=== PATIENT | female | born 1985 | race Two or more races ===

== ENCOUNTER → 2024-04-12 09:27 | Outpatient (REF) | payer BC, SELFPAY ==
[2024-04-12 10:54] LABS: % Basophils 0.7 % (0-2); % Eosinophils 3.4 % (0-6); % Immature Granulocytes 0.2 % (0-0.5); % Lymphocytes 28.8 % (20.5-51.1); % Monocytes 5.5 % (1.7-9.3); % Neutrophils 61.4 % (42.2-75.2); Absolute Eosinophils 0.2 10^3/uL (0-0.7); Absolute Lymphocytes 1.7 10^3/uL (1.2-3.4); Absolute Monocytes 0.3 10^3/uL (0.1-0.6); Absolute Neutrophils 3.6 10^3/uL (1.4-6.5); Hematocrit 35.1 % (37.0-47.0); Hemoglobin 11.2 g/dL (12.0-16.0); Mean Corp Hgb Conc. 31.9 g/dL (33.0-37.0); Mean Corpuscular Hgb 27.9 pg (27.0-31.0); Mean Corpuscular Volume 87.5 fL (81.0-99.0); Mean Platelet Volume 11.4 fL (7.4-10.4); Nucleated Red Blood Cells % 0 %; Platelet Count 304 10^3/uL (130-400); Red Blood Cell Count 4.01 10^6/uL (4.20-5.40); Red Cell Dist. Width 13.7 % (11.5-14.5); White Blood Cell Count 5.8 10^3/uL (4.8-10.8)
[2024-04-12 11:40] LABS: ALT (SGPT) 18 U/L (0-35); AST (SGOT) 25 U/L (14-36); Albumin 4.1 g/dl (3.5-5.0); Alkaline Phosphatase 65 U/L (38-126); Blood Urea Nitrogen 7 mg/dl (7-17); Carbon Dioxide 24 mmol/L (22-30); Chloride 108 mmol/L (98-107); Direct Bilirubin 0.2 mg/dl (0.0-0.4); Glucose 82 mg/dl (70-99); HDL Cholesterol 36 mg/dl; LDL Cholesterol, Calculated 95 mg/dl; Potassium 4.3 mmol/L (3.5-5.1); Sodium 141 mmol/L (135-145); Total Bilirubin 0.4 mg/dl (0.2-1.3); Total Cholesterol 148 mg/dl (50-199); Total Protein 7.4 g/dl (6.3-8.2); Triglyceride 87 mg/dl (10-149); Very Low Density Lipoprotein 17 mg/dl (0-30); eGFR > 60.00
[2024-04-12 11:44] LABS: Vitamin D, 25-OH*** 59.3 ng/mL (30-80)
[2024-04-12 11:57] LABS: TSH Reflex To Free T4 1.88 uIU/ml (0.47-4.68)
== END ==
LOC: REG 09:27
PROVIDERS: ATTENDING PHYSICIAN Student in an Organized Health Care Education/Training Program
DX: Z00.00 Encounter for general adult medical examination without abnormal findings (principal); D50.9 Iron deficiency anemia, unspecified; L65.9 Nonscarring hair loss, unspecified
CPT/HCPCS: 36415; 80048; 80061; 80076; 82306; 82671; 84443; 85025

== ENCOUNTER → 2024-10-15 11:09 | Outpatient (REF) | payer BC, SELFPAY ==
[2024-10-20 08:15] LABS: HPV, High Risk Not Detected; HPV, High Risk Source Cervical
== END ==
LOC: CPAP 11:09
PROVIDERS: ATTENDING PHYSICIAN Obstetrics & Gynecology Gynecology
DX: Z01.419 Encounter for gynecological examination (general) (routine) without abnormal findings (principal)
CPT/HCPCS: 87624

== ENCOUNTER → 2025-05-30 09:06 | Outpatient (REF) | payer BC, SELFPAY ==
[2025-05-30 10:10] LABS: Hematocrit 34.9 % (37.0-47.0); Hemoglobin 11.0 g/dL (12.0-16.0); Mean Corp Hgb Conc. 31.5 g/dL (33.0-37.0); Mean Corpuscular Volume 83.9 fL (81.0-99.0); Nucleated Red Blood Cells % 0 %; Platelet Count 323 10^3/uL (130-400); Red Cell Dist. Width 15.6 % (11.5-14.5)
[2025-05-30 10:48] LABS: ALT (SGPT) 15 U/L (0-35); AST (SGOT) 20 U/L (14-36); Albumin 4.2 g/dl (3.5-5.0); Alkaline Phosphatase 57 U/L (38-126); Blood Urea Nitrogen 7 mg/dl (7-17); Calcium 9.1 mg/dl (8.4-10.2); Carbon Dioxide 22 mmol/L (22-30); Chloride 109 mmol/L (98-107); Glucose 86 mg/dl (70-99); HDL Cholesterol 35 mg/dl; LDL Cholesterol, Calculated 99 mg/dl; Potassium 4.8 mmol/L (3.5-5.1); Sodium 138 mmol/L (135-145); Total Protein 7.7 g/dl (6.3-8.2); Very Low Density Lipoprotein 16 mg/dl (0-30); eGFR > 60.00
[2025-05-30 11:30] LABS: Ferritin 5.2 ng/ml (6.24-137)
== END ==
LOC: REG 09:06
PROVIDERS: ATTENDING PHYSICIAN Physician Assistant Medical
DX: Z00.01 Encounter for general adult medical examination with abnormal findings (principal); D50.9 Iron deficiency anemia, unspecified
CPT/HCPCS: 36415; 80053; 80061; 82728; 84443; 85025

== ENCOUNTER → 2025-07-28 19:10 | Outpatient (REF) | payer BC, SELFPAY | LOC: WDC 19:10 | PROVIDERS: ATTENDING PHYSICIAN Physician Assistant Medical | DX: Z12.31 Encounter for screening mammogram for malignant neoplasm of breast (principal) | CPT/HCPCS: 77063; 77067 ==

== ENCOUNTER → 2025-09-09 11:07 | Outpatient (REF) | payer BC, SELFPAY | LOC: WDC 11:07 | PROVIDERS: ATTENDING PHYSICIAN Physician Assistant Medical | DX: R92.30 Dense breasts, unspecified (principal) | CPT/HCPCS: 76641 ==